=== PATIENT | male | born 1940 | race Caucasian/White ===

== ENCOUNTER → 2018-12-12 | Outpatient (CLI) | payer OTHER, BC ==
[~2018-12-12] MED LIST: ACCURETIC 20-11 EACH PO; ACTOS 45 MG45 M1 PO; ADULT LOW DOSE81 MG PO; AMARYL4 MG PO; AVODART0.5 MG PO; BYETTA PEN 11 PENINJ SC; CARVEDILOL25 MG PO; FISHOIL PO; GLUMETZA1000; KEFLEX500 MG PO; LANTUS SC; LIPITOR20 MG PO; TESTIM5 GM TD; TEVETEN600 MG PO; VICTOZA0.6 MG/0.1 SQ; VITAMINC500 PO
== END ==
LOC: HYPER 06:38
DX: T81.89XA Other complications of procedures, not elsewhere classified, initial encounter (principal); E11.621 Type 2 diabetes mellitus with foot ulcer; L97.516 Non-pressure chronic ulcer of other part of right foot with bone involvement without evidence of necrosis; E11.40 Type 2 diabetes mellitus with diabetic neuropathy, unspecified; E11.69 Type 2 diabetes mellitus with other specified complication; M86.8X8 Other osteomyelitis, other site; E78.5 Hyperlipidemia, unspecified; I10 Essential (primary) hypertension; M31.8 Other specified necrotizing vasculopathies; F32.9 Major depressive disorder, single episode, unspecified; Z74.1 Need for assistance with personal care; Z99.3 Dependence on wheelchair; Z79.84 Long term (current) use of oral hypoglycemic drugs; Z79.01 Long term (current) use of anticoagulants; Z89.421 Acquired absence of other right toe(s); Z98.41 Cataract extraction status, right eye; Z98.42 Cataract extraction status, left eye; Y92.89 Other specified places as the place of occurrence of the external cause; Y83.8 Other surgical procedures as the cause of abnormal reaction of the patient, or of later complication, without mention of misadventure at the time of the procedure